=== PATIENT | male | born 1985 | race Two or more races ===

== ENCOUNTER 2021-04-26 09:33 | Emergency (ER) | payer OTHER, SELFPAY ==
--- NOTE | ~2021-04-26 | CT_ITS ---
EXAMINATION: CT ABDOMEN AND PELVIS WITHOUT CONTRAST CLINICAL INFORMATION: Left-sided abdominal pain. COMPARISON: CT abdomen and pelvis 06/08/2019 TECHNIQUE: Multidetector volumetric imaging was performed from the superior aspect of the liver through the pubic symphysis. Sagittal and coronal reformatted images were obtained on the technologist's workstation. This CT examination was performed using dose optimization techniques as appropriate, variously including the following: *Automated exposure control *Adjustment of mA and/or kV according to patient size (this includes techniques or standardized protocols for targeted exams where dose is matched to indication/reason for exam; i.e. extremities or head) *Use of iterative reconstruction technique DLP: 557 mGy-cm FINDINGS: LUNG BASES: The lung bases are clear. LIVER, GALLBLADDER, AND BILIARY TREE: The liver is normal in size, shape, and diffusely attenuated. No focal hepatic lesion or biliary ductal dilatation is present. The gallbladder is unremarkable with no evidence of radiopaque gallstones, gallbladder wall thickening, or obvious pericholecystic inflammatory changes. PANCREAS: Unremarkable. SPLEEN: Unremarkable. ADRENAL GLANDS: Unremarkable. KIDNEYS AND URETERS: The kidneys are normal in size, shape, and attenuation. No hydronephrosis, hydroureter, or calculi seen. No perinephric stranding. BLADDER: Unremarkable. GASTROINTESTINAL TRACT: Scattered stool and gas seen throughout the colon. The small bowel loops are normal caliber. Appendix is not visualized. There are surgical sutures in likely from appendectomy. There is no free air or free fluid. ABDOMINAL WALL: There is a small umbilical hernia containing fat. LYMPH NODES: No abnormal size pelvic or retroperitoneal lymph nodes seen. VASCULAR: Unremarkable. PELVIC VISCERA: Unremarkable. OSSEOUS STRUCTURES: Unremarkable. CT/CT abdomen pelvis wo con IMPRESSION: No acute intra-abdominal process seen Mild constipation. No bowel obstruction or left-sided abnormality seen Diffuse hepatic steatosis.
[2021-04-26 09:36] VITALS: BP 113/80; PULSE 85; RESP 19; TEMP 36.2; O2SAT 98; BMI 26.6
--- NOTE | 2021-04-26 11:24 | ED_ITS ---
HPI - Abdominal Pain General Chief Complaint: Abdominal Pain Stated Complaint: abd and back pain Time Seen by Provider: 04/26/21 11:21 Source: patient Mode of arrival: ambulatory Limitations: no limitations History of Present Illness HPI narrative: 35-year-old male came in for evaluation of left back pain and left lower abdominal pain, symptoms started 2 days ago, patient is also concern of STD patient had a history of chlamydia infection and was with the same symptoms of lower abdominal pain, patient declined any penile discharge or lesion. No history of kidney stones. Patient had a remote history of appendectomy. No fever, no chills, no bloody urine, no urinary frequency. Related Data Previous Rx's Medication Instructions Recorded doxycycline hyclate 100 mg PO BID #20 tab 04/26/21 Allergies Allergy/AdvReac Type Severity Reaction Status Date / Time latex [LATEX] Allergy Unknown RASH Unverified 07/02/20 15:28 Review of Systems Review of Systems All other systems are reviewed and are negative Constitutional: Reports as per HPI and Reports no additional constitutional complaints Eyes: Reports as per HPI and Reports no additional eye complaints Reports system reviewed and no additional complaints, except as documented Cardiovascular: Reports as per HPI and Reports no additional cardiovascular complaints Respiratory: Reports as per HPI and Reports no additional respiratory complaints Gastrointestinal: Reports as per HPI and Reports no additional gastrointestinal complaints Genitourinary: Reports no additional female genitourinary complaints Musculoskeletal: Reports no additional musculoskeletal complaints Skin/Breast: Reports system reviewed and no additional complaints, except as docu Psychiatric: Reports no additional psychiatric complaints Endocrine: Reports no additional endocrine complaints Hematologic/Lymphatic: Reports no additional hematologic/lymphatic complaints Allergic/Immunologic: Reports no additional allergic/immunologic complaints Reports system reviewed and no additional complaints, except as documented and Reports Abnormal speech present Physical Exam Vital Signs: Vital Signs: Last Vital Signs Temp 97.2 F 04/26/21 09:36 Pulse 85 04/26/21 09:36 Resp 19 04/26/21 09:36 BP 113/80 04/26/21 09:36 Pulse Ox 98 04/26/21 09:36 Body Mass Index 26.6 Vital signs have been reviewed as appeared to be correct. Blood pressure normal. Heart rate normal. Respiration rate normal. Temperature normal. Oxygen saturation normal. Appearance: Alert. Oriented X3. No acute distress. Head: Normal external exam. Normocephalic. Atraumatic. No Quiroz signs noted. No raccoon eyes noted Eyes: PERRLA. EOMI. Conjunctiva and sclera normal. Eyelids normal. ENT: TM's Normal. Pharynx normal. Uvula midline. Moist mucous membranes. No trismus noted. No drooling noted. No muffled voice noted. Neck: Normal inspection. Neck supple. FROM. No adenopathy. Thyroid Normal. No meningeal signs. No neck mass noted. CVS: Normal heart rate and rhythm. Heart sound normal. No murmurs noted. Pulses normal throughout. Respiratory: No respiratory distress. Painless inspiration. Breath sounds normal. No wheezes/rales/rhonchi noted. Chest nontender. No accessory muscle usage noted or decreased air movement noted. Abdomen: Soft and nontender. Bowel sounds normal in all 4 quadrants. No distention noted. No organomegaly noted. No visible injury noted. Back: No CVA tenderness. Full range of motion noted. Skin: Skin warm and dry. Normal skin color. Normal skin turgor. No rashes/lesions/lacerations noted. Extremities: No lower extremity edema. Extremities exhibit normal range of motion. Extremities nontender. Neuro: Oriented X 3. No motor deficit. No sensory deficit. Reflexes normal. Course Course Course Narrative: Assessment and plan. 35-year-old male with history of STD exposure, patient with a history of chlamydia in the past. Came in with left-sided lower abdominal pain (patient stated that it mimic symptoms when he had chlamydia infection), Patient has unremarkable labs and CT of the abdomen pelvis to explain the intra- abdominal pain. Will treat the patient for prophylaxis STD with ceftriaxone and doxycycline. MDM - Abdominal Pain Lab Data Attestation: I reviewed the patient's lab results. Result diagrams: 04/26/21 11:39 04/26/21 11:39 Labs: Lab Results 04/26/21 04/26/21 04/26/21 Range/Units 11:33 11:39 11:39 WBC 8.2 (4.8-10.8) X10*3/uL RBC 4.81 (4.60-5.80) X10*6/uL Hgb 14.3 (14.0-18.0) g/dl Hct 41.2 L (42-52) % MCV 85.7 (80-98) fL MCH 29.7 (27.0-33.0) pg MCHC 34.7 (31.0-36.0) g/dl RDW 12.2 (11.0-16.0) % Plt Count 285 (160-400) X10*3/uL MPV 9.7 (9.4-12.4) fL Immature Gran % (Auto) 0.1 (0.0-0.4) % Neut % (Auto) 57.3 (45-73) % Lymph % (Auto) 33.5 (20-40) % Elk % (Auto) 5.5 (2-11) % Eos % (Auto) 3.2 (0-4) % Baso % (Auto) 0.4 (0-2) % Lymph # (Auto) 2.8 (1.2-4.9) X10*3/uL Elk # (Auto) 0.5 (0.1-1.2) X10*3/uL Eos # (Auto) 0.3 (0.0-0.4) X10*3/uL Baso # (Auto) 0.0 (0.0-0.2) X10*3/uL Abs Immat Gran (auto) 0.01 (0.00-0.03) X10*3/uL Absolute Neuts (auto) 4.7 (2.0-8.3) X10*3/uL Absolute Nucleated RBC 0.000 (0.0-0.012) X10*3/uL Nucleated RBC % (auto) 0.0 (0.0-0.2) /100WBC Sodium 139 (135-145) mmol/L Potassium 4.3 (3.3-5.1) mmol/L Chloride 104 (96-108) mmol/L Carbon Dioxide 26 (22-29) mmol/L Anion Gap 13 (12-20) BUN 9 (9-16) mg/dL Creatinine 1.01 (0.5-1.4) mg/dL Estim Creat Clear Calc 100.1 Estimated GFR > 60 Random Glucose 98 (60-115) mg/dL Calcium 9.9 (8.4-10.2) mg/dL Lipase 19 (8-78) U/L Urine Color YELLOW Urine Appearance CLEAR Urine pH 6.0 (5.0-8.0) Ur Specific [place] 1.010 (1.005-1.025) Urine Protein NEG (NEG-TRACE) MG/DL Urine Glucose (UA) NEG (NEG) MG/DL Urine Ketones NEG (NEG) MG/DL Urine Blood NEG (NEG) Urine Nitrite NEG (NEG) Ur Leukocyte Esterase NEG (NEG) Urine RBC 0 (0) /HPF Urine WBC 0-2 (0-4) /HPF Ur Squamous Epith Cells NONE /LPF Urine Bacteria NONE /LPF Imaging Data CT scan - abdomen: Radiologist's impression: No acute intra-abdominal process seen Mild constipation. No bowel obstruction or left-sided abnormality seen Diffuse hepatic steatosis. Discharge Plan Discharge Clinical Impression: Exposure to STD Abdominal pain Qualifiers: Abdominal location: left lower quadrant Qualified Code(s): R10.32 - Left lower quadrant pain Patient Disposition: Home, Self-Care Instructions: Sexually Transmitted Diseases (ED) Prescriptions: New doxycycline hyclate 100 mg tablet 100 mg PO BID Qty: 20 RF: 0 Referrals: Physician,None [Primary Care Provider] - 2 days [facility] Past Medical History Medical History Asthma Social History Social History Advance Directives: No Advance Directives Information Provided: No
[2021-04-26 11:44] LABS: MANUAL DIFF FLAG NO
[2021-04-26] MEDS: 0.9 % Sodium Chloride 1,000 ML 999 ML IVCONT (11:44)
[2021-04-26 11:45] LABS: Basophils Percent Auto 0.4 % (0-2); Eosinophils Absolute Auto 0.3 X10*3/uL (0.0-0.4); Eosinophils Percent Auto 3.2 % (0-4); Hematocrit 41.2 % (42-52); Hemoglobin 14.3 g/dl (14.0-18.0); Imm Gran Abs Auto 0.01 X10*3/uL (0.00-0.03); Imm Gran Pct Auto 0.1 % (0.0-0.4); Lymphocytes Absolute Auto 2.8 X10*3/uL (1.2-4.9); Lymphocytes Percent Auto 33.5 % (20-40); Mean Corpuscular HGB Conc 34.7 g/dl (31.0-36.0); Mean Corpuscular Hemoglobin 29.7 pg (27.0-33.0); Mean Corpuscular Volume 85.7 fL (80-98); Mean Platelet Volume 9.7 fL (9.4-12.4); Monocytes Absolute Auto 0.5 X10*3/uL (0.1-1.2); Monocytes Percent Auto 5.5 % (2-11); Neutrophils Absolute Auto 4.7 X10*3/uL (2.0-8.3); Neutrophils Percent Auto 57.3 % (45-73); Platelet Count 285 X10*3/uL (160-400); Red Blood Count 4.81 X10*6/uL (4.60-5.80); Red Cell Distribution Width 12.2 % (11.0-16.0); White Blood Count 8.2 X10*3/uL (4.8-10.8)
[2021-04-26 11:46] LABS: Glucose Urine UA NEG (NEG); Leukocyte Esterase Urine NEG (NEG); Nitrite Urine NEG (NEG); Urine Blood NEG (NEG); Urine Ketones NEG (NEG); Urine Protein NEG (NEG-TRACE)
[2021-04-26 11:50] LABS: Appearance Urine CLEAR; Color Urine YELLOW
[2021-04-26 11:59] LABS: RBC Urine 0 /HPF (0); WBC Urine 0-2 /HPF (0-4)
[2021-04-26 12:16] LABS: Anion Gap 13 (12-20); Blood Urea Nitrogen 9 mg/dL (9-16); Calcium 9.9 mg/dL (8.4-10.2); Carbon Dioxide 26 mmol/L (22-29); Chloride 104 mmol/L (96-108); Creatinine Clr Calc Pharmacy 100.1; Estimated Glomerular Filt Rate > 60; Glucose Random 98 mg/dL (60-115); Lipase 19 U/L (8-78); Potassium 4.3 mmol/L (3.3-5.1); Sodium 139 mmol/L (135-145)
[2021-04-26] MEDS: cefTRIAXone sodium 250 MG, Lidocaine HCl 1 % MPF 0.9 ML IM (13:27)
[2021-04-26 13:45] LABS: CT PCR NOT DETECTED (Not Detect.); NG PCR NOT DETECTED (Not Detect.)
[2021-04-26 13:51] VITALS: BP 124/82; PULSE 56; RESP 17; O2SAT 95
== END 2021-04-26 13:53 | disposition home or self-care (01) ==
PROVIDERS: Emergency Provider Emergency Medicine
DX: M54.5 Low back pain (principal); R10.32 Left lower quadrant pain; Z20.2 Contact with and (suspected) exposure to infections with a predominantly sexual mode of transmission; Z79.899 Other long term (current) drug therapy
CPT/HCPCS: 36415; 74176; 80048; 81001; 83690; 85025; 87491; 87591; 96365; 96372; 99284; J0696

== ENCOUNTER 2023-01-07 07:49 | Emergency (ER) | payer OTHER, SELFPAY ==
[2023-01-07 07:58] VITALS: BP 123/84; PULSE 102; RESP 18; TEMP 36.8; O2SAT 99; BMI 28.7
--- NOTE | 2023-01-07 08:24 | ED_ITS ---
HPI - Dental/Oral General Chief complaint: Dental/Oral Stated complaint: Dental Infection Sore Throat Time Seen by Provider: 01/07/23 08:14 Source: patient Mode of arrival: ambulatory Limitations: no limitations History of Present Illness HPI Narrative: This is a 37-year-old male who denies any medical history who presents with several months of right lower dental pain. Patient reports he was seen by a dental office and was told he would need to have several appointments to have the tooth removed. Patient reports that he did not have the time to do this and so never followed up. Patient denies any difficulty swallowing, difficulty breathing, fevers, facial swelling. Denies tobacco use Related Data Previous Rx's Medication Instructions Recorded doxycycline hyclate 100 mg tablet 100 mg PO BID #20 tabs 04/26/21 acetaminophen 325 mg tablet 650 mg PO Q4H PRN pain #30 tabs 01/07/23 (Tylenol) clindamycin HCl 150 mg capsule 150 mg PO TID #21 caps 01/07/23 ibuprofen 600 mg tablet 600 mg PO Q8H PRN pain #30 tabs 01/07/23 Allergies Allergy/AdvReac Type Severity Reaction Status Date / Time latex [LATEX] Allergy Unknown RASH Verified 01/07/23 08:01 Review of Systems Neurologic: Denies Abnormal speech present [facility] Past Medical History Attestation statement: The following information was validated with the patient. Source: old records reviewed and nursing notes reviewed Medical History Asthma Social History Social History Advance Directives: No Advance Directives Information Provided: No Physical Exam Vital Signs: Vital Signs: Last Vital Signs Temp 98.2 F 01/07/23 07:58 Pulse 102 H 01/07/23 07:58 Resp 18 01/07/23 07:58 BP 123/84 01/07/23 07:58 Pulse Ox 99 01/07/23 07:58 O2 Del Method Room Air 01/07/23 07:58 BMI result Body Mass Index 28.7 Const: General: cooperative, healthy appearing, comfortable and no acute distress Orientation/consciousness: patient oriented x3 Limitations: no limitations HEENT: Other: No trismus Head: Yes normal to inspection Ears: hearing grossly normal bilaterally General nose exam: Normal external nose present Face and sinus: Yes normal facial exam Mouth: Normal oral and palatal mucosa present Teeth image: 1. Absent teeth 2. The tooth is broken. There is swelling of the gum line and tenderness with no abscess seen Throat: Yes posterior oropharynx normal Eyes: General: appearance normal, both eyes and all related structures Pupils: Equal, round and reactive pupils present Neck: Neck: Yes normal visual inspection, Yes full ROM and Yes no lymphadenopathy Chest: Chest palpation & inspection: normal inspection of the chest Resp: Effort & Inspection: normal respiratory effort Auscultation: clear to auscultation bilaterally Cardio: Rate: regular rate Rhythm: regular rhythm Peripheral pulses: Peripheral pulses 2+ throughout GI: Inspection: Yes normal to inspection Palpation (GI): Soft to palpation and nontender Auscultation: normal bowel sounds Back/Spine/Pelvis: Thoracic/Lumbar Spine: thoracic and lumbar spine normal to inspection Skin: General skin exam: no rashes or lesions noted Neuro: General: patient oriented x3, no focal motor deficits and normal sensation to monofilament Cranial nerves: Yes Equal, round and reactive pupils present Cognition (Neuro): normal cognition Speech: No Abnormal speech present Gait exam (Neuro): Normal gait present Motor exam (neuro): 5/5 motor strength present throughout Extrem: General: Yes normal to inspection Medical Decision Making Medical Decision Making MDM Narrative: 37-year-old male here with complaints of right lower dental pain for the last few months. No abscess on exam. No evidence of Vargas's angina. There is some tenderness and swelling of the gum line. Patient has seen dental clinic but has not followed up appropriately I will start him on antibiotic and recommend alternating Motrin and Tylenol with follow-up with dental clinic. Differential Diagnosis Differential Diagnoses: The differential diagnosis associated with the presentation includes See discussion above Discharge Plan Discharge Clinical Impression: Toothache Patient Disposition: Home, Self-Care Instructions: Toothache (ED) Additional Instructions: [place] gargles Topical Orajel Follow-up with your dentist Prescriptions: New ibuprofen 600 mg tablet 600 mg PO Q8H PRN (Reason: pain) Qty: 30 0RF acetaminophen [Tylenol] 325 mg tablet 650 mg PO Q4H PRN (Reason: pain) Qty: 30 0RF clindamycin HCl 150 mg capsule 150 mg PO TID Qty: 21 0RF No Action doxycycline hyclate 100 mg tablet 100 mg PO BID Qty: 20 0RF Referrals: Emmanuel Asencio MD [Primary Care Provider] - 1 week (as needed) Interventions: ED Discharge Assessment Last Done: 01/07/23 08:39 Discharge Date/Time: 01/07/23 08:40
== END 2023-01-07 08:40 | disposition home or self-care (01) ==
PROVIDERS: Emergency Provider Emergency Medicine; PCP Family Medicine
DX: K08.89 Other specified disorders of teeth and supporting structures (principal)
CPT/HCPCS: 99282; 99283

== ENCOUNTER → 2023-01-17 15:12 | Outpatient (BNVA) | payer OTHER, SELFPAY | PROVIDERS: PCP Family Medicine; Visit Provider Physician Assistant Medical | DX: M24.132 Other articular cartilage disorders, left wrist (principal) | CPT/HCPCS: 73110; 73130; 99203 ==

== ENCOUNTER → 2023-01-24 09:30 | Outpatient (BNVA) | payer OTHER, SELFPAY | PROVIDERS: PCP Family Medicine; Visit Provider Physician Assistant Medical | DX: S63.592A Other specified sprain of left wrist, initial encounter (principal); X58.XXXA Exposure to other specified factors, initial encounter | CPT/HCPCS: 99213 ==

== ENCOUNTER → 2023-02-07 08:14 | Outpatient (BNVA) | payer OTHER, SELFPAY | PROVIDERS: Visit Provider Physician Assistant | DX: S69.82XA Other specified injuries of left wrist, hand and finger(s), initial encounter (principal) | CPT/HCPCS: 99202 ==

== ENCOUNTER 2023-05-24 09:04 | Emergency (ER) | payer OTHER, SELFPAY ==
--- NOTE | ~2023-05-24 | XR_ITS ---
EXAMINATION: XR RIBS, LEFT CLINICAL INFORMATION: Pain COMPARISON: Left rib radiograph from 09/20/2019 TECHNIQUE: 4 views of the left ribs and chest FINDINGS: No focal consolidation. No pneumothorax. Trachea is midline. Cardiac mediastinal silhouette is not enlarged. No large. Soft tissues are unremarkable. Osseous structures are intact. No acute visualized left-sided rib fractures. XR/XR ribs LT min 3V w CXR1V IMPRESSION: 1. No acute cardiopulmonary process. 2. No acute visualized left-sided rib fractures.
--- NOTE | ~2023-05-24 | XR_ITS ---
EXAMINATION: XR CERVICAL SPINE, 3 VIEWS XR THORACIC SPINE, 3 VIEWS CLINICAL INFORMATION: Pain COMPARISON: None available. TECHNIQUE: 3 views of the cervical spine 3 views of the thoracic spine FINDINGS: No acute visible fracture or dislocation. Straightening of normal cervical curvature which may be secondary to patient positioning versus muscle spasm. Very mild multilevel degenerative changes with osteophyte formation. Visualized dens is intact. Lateral masses are symmetric. Vertebral body heights and disc spaces are maintained. Prevertebral soft tissues are unremarkable. Posterior elements are intact. Paraspinal soft tissues are unremarkable. Visualized portions of the chest and abdomen are unremarkable. XR/XR cervical spine 3V IMPRESSION: 1. No acute visible fracture or dislocation. 2. Straightening of normal cervical curvature which may be secondary to patient positioning versus muscle spasm. 3. Very mild multilevel degenerative changes.
--- NOTE | ~2023-05-24 | XR_ITS ---
EXAMINATION: XR CERVICAL SPINE, 3 VIEWS XR THORACIC SPINE, 3 VIEWS CLINICAL INFORMATION: Pain COMPARISON: None available. TECHNIQUE: 3 views of the cervical spine 3 views of the thoracic spine FINDINGS: No acute visible fracture or dislocation. Straightening of normal cervical curvature which may be secondary to patient positioning versus muscle spasm. Very mild multilevel degenerative changes with osteophyte formation. Visualized dens is intact. Lateral masses are symmetric. Vertebral body heights and disc spaces are maintained. Prevertebral soft tissues are unremarkable. Posterior elements are intact. Paraspinal soft tissues are unremarkable. Visualized portions of the chest and abdomen are unremarkable. XR/XR thoracic spine 3V IMPRESSION: 1. No acute visible fracture or dislocation. 2. Straightening of normal cervical curvature which may be secondary to patient positioning versus muscle spasm. 3. Very mild multilevel degenerative changes.
--- NOTE | 2023-05-24 09:10 | ECG_ITS ---
Test Reason : chest pain Blood Pressure : / mmHG Vent. Rate : 059 BPM Atrial Rate : 059 BPM P-R Int : 140 ms QRS Dur : 080 ms QT Int : 384 ms P-R-T Axes : 053 002 015 degrees QTc Int : 380 ms Sinus bradycardia Otherwise normal ECG When compared with ECG of 02-AUG-2008 14:22, Vent. rate has decreased BY 44 BPM QT has shortened Referred By: Generic ED Physician Electronically Signed By:Fred Cross
[2023-05-24 09:28] VITALS: BP 120/73; PULSE 60; RESP 18; TEMP 36.8; O2SAT 99; BMI 28.7
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
== END 2023-05-24 11:56 | disposition home or self-care (01) ==
PROVIDERS: Emergency Provider Student in an Organized Health Care Education/Training Program
DX: R07.89 Other chest pain (principal); M54.50 Low back pain, unspecified; M62.838 Other muscle spasm; R07.81 Pleurodynia; M54.2 Cervicalgia; M54.6 Pain in thoracic spine
CPT/HCPCS: 71101; 72040; 72072; 93005; 99283; 99284

== ENCOUNTER → 2023-05-24 09:10 | Outpatient (BNV) | payer OTHER, SELFPAY | PROVIDERS: Emergency Provider Student in an Organized Health Care Education/Training Program; Visit Provider Internal Medicine Cardiovascular Disease | DX: R00.1 Bradycardia, unspecified (principal) | CPT/HCPCS: 93010 ==

== ENCOUNTER 2023-06-14 18:51 | Emergency (ER) | payer OTHER, SELFPAY ==
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
[2023-06-14 18:59] VITALS: BP 130/80; BP 131/83; PULSE 102; PULSE 139; RESP 18; TEMP 37.3; O2SAT 95; BMI 27.2
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
[2023-06-14 19:29] LABS: MANUAL DIFF FLAG NO
[2023-06-14 19:33] LABS: Basophils Absolute Auto 0.1 X10*3/uL (0.0-0.2); Basophils Percent Auto 0.4 % (0-2); Eosinophils Absolute Auto 0.3 X10*3/uL (0.0-0.4); Eosinophils Percent Auto 1.5 % (0-4); Hematocrit 40.9 % (42.0-52.0); Imm Gran Abs Auto 0.11 X10*3/uL (0.00-0.03); Imm Gran Pct Auto 0.5 % (0.0-0.4); Lymphocytes Absolute Auto 3.3 X10*3/uL (1.2-4.9); Mean Corpuscular HGB Conc 34.2 g/dl (31.0-36.0); Mean Corpuscular Hemoglobin 29.7 pg (27.0-33.0); Mean Corpuscular Volume 86.7 fL (80.0-98.0); Monocytes Percent Auto 4.7 % (2-11); Neutrophils Absolute Auto 15.7 x10*3/uL (2.0-8.3); Neutrophils Percent Auto 76.9 % (45-73); Platelet Count 309 X10*3/uL (160-400); Red Blood Count 4.72 X10*6/uL (4.60-5.80); Red Cell Distribution Width 12.4 % (11.0-16.0); White Blood Count 20.4 X10*3/uL (4.8-10.8)
[2023-06-14 19:37] LABS: INTERNATIONAL NORM RATIO 0.9 (0.9-1.1); Prothrombin Time 11.3 SEC (11.1-13.3)
[2023-06-14] MEDS: iohexoL 350 MG/ML 100 ML INFUS..BTL IV (19:47)
[2023-06-14] MEDS: Morphine Sulfate 4 MG/ML CARTRIDGE IVPUSH ×2 (19:52→22:39)
[2023-06-14] MEDS: ondansetron HCL 4 MG/2 ML VIAL IVPUSH (19:53)
[2023-06-14] MEDS: 0.9 % Sodium Chloride 1,000 ML 999 ML IVCONT (19:53)
[2023-06-14 19:54] LABS: Alanine Aminotransferase 43 U/L (0-40); Albumin Level 4.6 g/dL (3.5-5.0); Alkaline Phosphatase 56 U/L (39-117); Anion Gap 16 (12-20); Aspartate Amino Transferase 58 U/L (5-37); Bilirubin Direct 0.2 mg/dL (0.0-0.5); Bilirubin Total 0.5 mg/dL (0.0-1.0); Blood Urea Nitrogen 9 mg/dL (9-16); Calcium 11.5 mg/dL (8.4-10.2); Carbon Dioxide 25 mmol/L (22-29); Chloride 107 mmol/L (96-108); Creatinine Clr Calc Pharmacy 84.9; Estimated Glomerular Filt Rate > 60; Glucose Random 103 mg/dL (60-115); Lipase 14 U/L (8-78); Potassium 3.5 mmol/L (3.3-5.1); Sodium 144 mmol/L (135-145); Total Protein 7.8 g/dL (6.5-8.0)
[2023-06-14] MEDS: Lidocaine HCl 1 % MPF 5 ML VIAL 10 ML SUBCUT (21:21)
[2023-06-14 22:38] VITALS: BP 145/89; PULSE 83; RESP 16; O2SAT 98
== END 2023-06-14 23:10 | disposition home or self-care (01) ==
PROVIDERS: Emergency Provider Emergency Medicine
DX: S09.90XA Unspecified injury of head, initial encounter (principal); S02.92XA Unspecified fracture of facial bones, initial encounter for closed fracture; S01.511A Laceration without foreign body of lip, initial encounter; S20.212A Contusion of left front wall of thorax, initial encounter; S00.03XA Contusion of scalp, initial encounter; S80.211A Abrasion, right knee, initial encounter; Y00.XXXA Assault by blunt object, initial encounter; R51.9 Headache, unspecified; R10.12 Left upper quadrant pain; Y93.9 Activity, unspecified; Y92.9 Unspecified place or not applicable; Y99.9 Unspecified external cause status
CPT/HCPCS: 12013; 36415; 70450; 70486; 71260; 72125; 74177; 80048; 80076; 83690; 85025; 85610; 96374; 96375; 96376; 99284; J2270; J2405; Q9967

== ENCOUNTER 2023-07-02 12:41 | Emergency (ER) | payer OTHER, SELFPAY ==
[2023-07-02 12:48] VITALS: BP 116/81; BP 140/78; PULSE 106; PULSE 107; RESP 18; TEMP 37; O2SAT 98; O2SAT 99; BMI 25.2
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
[2023-07-02] MEDS: Lidocaine HCl 1 % MPF 5 ML VIAL SUBCUT (13:10)
[2023-07-02] MEDS: Diphth,Pertus(ACell),Tet Adult 0.5 ML SYRINGE IM (13:42)
== END 2023-07-02 13:59 ==
PROVIDERS: Emergency Provider Student in an Organized Health Care Education/Training Program; PCP Family Medicine
DX: S61.411A Laceration without foreign body of right hand, initial encounter (principal); S60.511A Abrasion of right hand, initial encounter; W26.9XXA Contact with unspecified sharp object(s), initial encounter; Y93.9 Activity, unspecified; Y92.9 Unspecified place or not applicable; Y99.9 Unspecified external cause status; Z23 Encounter for immunization; Z79.899 Other long term (current) drug therapy
CPT/HCPCS: 12001; 90471; 90715; 99284

== ENCOUNTER 2024-06-21 15:54 | Emergency (ER) | payer OTHER, SELFPAY ==
--- NOTE | ~2024-06-21 | XR_ITS ---
EXAMINATION: XR KNEE, LEFT CLINICAL INFORMATION: Pain. Injury. COMPARISON: None available. TECHNIQUE: Four views of the left knee. FINDINGS: No fracture or joint effusion. Alignment is anatomic. Joint spaces are maintained. No abnormal soft tissue calcification. XR/XR knee LT 4V IMPRESSION: No fracture or dislocation. No joint effusion. Electronically signed by: Eran Fallon DO 06/21/2024 05:19 PM EDT
[2024-06-21 16:13] VITALS: BP 113/71; PULSE 72; RESP 18; TEMP 36.9; O2SAT 97; BMI 28.9
--- NOTE | 2024-06-21 16:13 | ED.GENADULT ---
HPI - General Adult General Chief complaint: Extremity Injury, Lower Stated complaint: pain in L knee, infection injection on stomach Time Seen by Provider: 06/21/24 17:53 Source: patient Mode of arrival: ambulatory Limitations: no limitations History of Present Illness HPI narrative: Patient is a 38-year-old male presents to the emergency department for evaluation of left knee pain primarily to the posterior knee but radiates to the medial and lateral side as well as over the patella. Reports no precipitating injury. Pain has been progressive over the past 3 days. He admits to a history of pain to this knee at least 5 other times in the past, most recently having occurred approximately 1 month ago. He is ambulatory with with an antalgic gait, he threw himself here today. Denies any redness or swelling, denies fevers or chills. He also expresses concern about localized area of redness surrounding his Sublocade injection site that he received 4 days ago on Monday. Reports it to be somewhat itchy. Related Data Previous Rx's ?Medication ?Instructions ?Recorded doxycycline hyclate 100 mg tablet 100 mg PO BID #20 tabs 04/26/21 acetaminophen 325 mg tablet 650 mg (2 x 325 mg) PO Q4H PRN 01/07/23 (Tylenol) pain #30 tabs clindamycin HCl 150 mg capsule 150 mg PO TID #21 caps 01/07/23 ibuprofen 600 mg tablet 600 mg PO Q8H PRN pain #30 tabs 01/07/23 naproxen 500 mg tablet 500 mg PO BID PRN back pain #28 01/17/23 tabs cyclobenzaprine 5 mg tablet 5 mg PO TID PRN muscle spasm #15 05/24/23 tabs ibuprofen 600 mg tablet 600 mg PO Q6H PRN pain #30 tabs 05/24/23 amoxicillin 875 mg-potassium 1 tab PO BID #6 tabs 06/14/23 clavulanate 125 mg tablet cyclobenzaprine 10 mg tablet 10 mg PO TID PRN muscle spasm #20 06/14/23 tabs morphine 15 mg immediate release 15 mg PO TID PRN pain #14 tabs 06/14/23 tablet ondansetron 4 mg disintegrating 4 mg PO Q8H PRN nausea and 06/14/23 tablet vomiting #20 tabs Allergies Allergy/AdvReac Type Severity Reaction Status Date / Time latex [LATEX] Allergy Unknown RASH Verified 06/21/24 16:14 Review of Systems Review of Systems: Yes all other systems are reviewed and are negative [facility] Past Medical History Attestation statement: The following information was validated with the patient. Source: old records reviewed Medical History Asthma Social History Social History (Updated 06/14/23 @ 19:30 by Lindsay Pradhan DO) Alcohol intake: never Patient Tobacco Use Status: Tobacco use Unknown Substance Use Type: Marijuana and Other Advance Directives: No Advance Directives Information Provided: No Do you have a plan to hurt others: No Plan Current occupational status: employed Current occupation: ambidextrous Physical Exam ED Vital Signs: Vital Signs - 24 hr 06/21/24 16:13 06/21/24 17:52 Temperature 98.4 F 98.8 F Pulse Rate 72 66 Respiratory Rate 18 20 Blood Pressure 113/71 126/67 Pulse Oximetry 97 98 Oxygen Delivery Method Room Air Room Air BMI result Body Mass Index 28.9 Appearance: Alert.?Oriented to person, place and time. No acute distress.?Normal affect. Eyes: Pupils equal, round and reactive to light.? ENT: Pharynx normal.?? Neck: Normal inspection.? Neck supple.?? CVS: Heart sounds normal. Normal heart rate and rhythm.? Pulses normal.?? Respiratory: No respiratory distress.? Lung sounds clear to auscultation bilaterally?? Abdomen: Soft and non-tender. Normoactive bowel sounds. 4 cm X 2 cm area of slight erythema, soft touch without induration or fluctuance to the left lower quadrant Skin: Skin warm and dry.? Normal skin color.? Extremities: No lower extremity edema.? No calf ttp. Left knee with diffuse tenderness upon palpation, no laxity, no obvious effusion, no erythema or warmth. 2+ DP/PT pulse bilaterally. ? Neuro: Moves all extremities spontaneously. Sensation intact bilaterally. Ambulates with antalgic gait. Course Course Course Narrative: RME performed by Doreen Gomez PA-C. Patient is a 38 year old assigned male at presenting to the emergency department with left knee pain. Patient states that he has not had any injury but has been having pain. Detailed physical exam and review of systems are deferred to the court bailiff or sheriff. Imaging ordered. Patient placed back in the waiting room pending room availability and results. Medications Administered Discontinued Medications Generic Name Dose Route Start Last Admin Trade Name Robin PRN Reason Stop Dose Admin Acetaminophen 975 mg 06/21/24 19:45 06/21/24 20:03 Acetaminophen 325 Mg Tablet PO 06/21/24 19:46 975 mg ONCE ONE Administration Ketorolac Tromethamine 15 mg 06/21/24 18:19 06/21/24 18:48 Ketorolac Tromethamine 15 Mg/Ml Vial IM 06/21/24 18:20 15 mg ONCE ONE Administration Medical Decision Making Medical Decision Making [facility] Narrative: Patient is a 38-year-old male presenting to emergency department for evaluation of left knee pain and redness to Sublocade injection site on the abdomen as per HPI. Left lower quadrant injection site reaction, mild localized erythema, discussed conservative treatment of injection site, given duration or 4 days that this boy he expresses concern for infection, no signs of systemic toxicity he is afebrile without tachycardia. Will trial short course of antibiotic for mild cellulitis. Regarding his left knee, upon palpation but does not have any overlying skin changes, no obvious erythema or warmth, no effusion. Suspect this is less likely septic joint. No precipitating injury to suggest an acute fracture dislocation and x-ray is without acute abnormality. Extremity is neurovascularly intact distally. No additional arthralgias/myalgias. Differential Diagnosis Differential Diagnoses: The differential diagnosis associated with the presentation includes (See narrative above) Admission/Observation Consideration of admission/observation: Escalation of care including admission/observation considered Independent Interpretation I performed an independent interpretation of an: Plain X-Ray (No acute fracture) Radiology Impression Discussion of test interpretation with radiology: I have reviewed the radiologist's reading. Radiologist Impression: XR/XR knee LT 4V IMPRESSION: No fracture or dislocation. No joint effusion. Independent Historian Clinical information obtained from an independent historian. History obtained from or confirmed by: Spouse External Record Review External record reviewed: Outpatient record Discharge Plan Discharge Clinical Impression: Knee strain Qualifiers: Encounter type: initial encounter Laterality: left Qualified Code(s): S86.912A - Strain of unspecified muscle(s) and tendon(s) at lower leg level, left leg, initial encounter Patient Disposition: Home, Self-Care Instructions: R.I.C.E. Treatment (ED) Additional Instructions: You can take ibuprofen 200 mg, 3 tablets (600mg) every 6-8 hours as needed for pain, in addition to Tylenol 500 mg, 2 tablets (1,000mg) every 4-6 hours as needed for pain, but not to exceed 3 doses daily (3,000mg).? Anil bandage for compression. Be sure to rest, apply ice they are 10 15 minutes 3-4 times daily, elevate your leg. Follow-up with primary care doctor. Prescriptions: No Action doxycycline hyclate 100 mg tablet 100 mg PO BID Qty: 20 0RF ibuprofen 600 mg tablet 600 mg PO Q8H PRN (Reason: pain) Qty: 30 0RF acetaminophen [Tylenol] 325 mg tablet 650 mg PO Q4H PRN (Reason: pain) Qty: 30 0RF clindamycin HCl 150 mg capsule 150 mg PO TID Qty: 21 0RF ibuprofen 600 mg tablet 600 mg PO Q6H PRN (Reason: pain) Qty: 30 0RF cyclobenzaprine 5 mg tablet 5 mg PO TID PRN (Reason: muscle spasm) Qty: 15 0RF ondansetron 4 mg tablet,disintegrating 4 mg PO Q8H PRN (Reason: nausea and vomiting) Qty: 20 0RF morphine 15 mg tablet 15 mg PO TID PRN (Reason: pain) Qty: 14 0RF Rx Instructions: partial fill okay; Partial Fill upon patient request. cyclobenzaprine 10 mg tablet 10 mg PO TID PRN (Reason: muscle spasm) Qty: 20 0RF amoxicillin-pot clavulanate 875-125 mg tablet 1 tab PO BID Qty: 6 0RF naproxen 500 mg tablet 500 mg PO BID PRN (Reason: back pain) Qty: 28 0RF Referrals: Physician,None [Primary Care Provider] - Stand Alone Forms: Work/School Release Print Language: Guinean
[2024-06-21 17:52] VITALS: BP 126/67; PULSE 66; RESP 20; TEMP 37.1; O2SAT 98
[2024-06-21] MEDS: Ketorolac Tromethamine 15 MG/ML VIAL IM (18:48)
[2024-06-21] MEDS: Acetaminophen 325 MG TABLET 975 MG PO (20:03)
[2024-06-21 20:44] VITALS: BP 126/67; PULSE 66; RESP 20; TEMP 37.1; O2SAT 98
== END 2024-06-21 20:44 | disposition home or self-care (01) ==
PROVIDERS: Emergency Provider Internal Medicine
DX: S86.912A Strain of unspecified muscle(s) and tendon(s) at lower leg level, left leg, initial encounter (principal); X58.XXXA Exposure to other specified factors, initial encounter; L03.311 Cellulitis of abdominal wall; Y93.9 Activity, unspecified; Y92.9 Unspecified place or not applicable; Y99.9 Unspecified external cause status
CPT/HCPCS: 73564; 96370; 96372; 99283; 99284; J1885

== ENCOUNTER 2024-11-24 15:24 | Emergency (ER) | payer OTHER, SELFPAY ==
[2024-11-24 16:32] VITALS: BP 122/77; PULSE 76; RESP 18; TEMP 37.4; O2SAT 99; BMI 25.6
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
[2024-11-24 16:57] LABS: MANUAL DIFF FLAG NO
[2024-11-24 17:01] LABS: Appearance Urine Clear; Color Urine Yellow; Glucose Urine UA Negative (Negative); Leukocyte Esterase Urine Negative (Negative); Nitrite Urine Negative (Negative); Specific Gravity - Urine 1.025 (1.005-1.025); Urine Blood Negative (Negative); Urine Ketones Trace mg/dL (Negative); Urine Protein Negative (Neg-Trace)
[2024-11-24 17:03] LABS: Basophils Absolute Auto 0.1 X10*3/uL (0.0-0.2); Basophils Percent Auto 0.5 % (0-2); Eosinophils Absolute Auto 0.3 X10*3/uL (0.0-0.4); Eosinophils Percent Auto 3.1 % (0-4); Hematocrit 42.6 % (42.0-52.0); Hemoglobin 14.6 g/dl (14.0-18.0); Imm Gran Abs Auto 0.03 X10*3/uL (0.00-0.03); Imm Gran Pct Auto 0.3 % (0.0-0.4); Lymphocytes Absolute Auto 2.6 X10*3/uL (1.2-4.9); Lymphocytes Percent Auto 26.4 % (20-40); Mean Corpuscular HGB Conc 34.3 g/dl (31.0-36.0); Mean Corpuscular Hemoglobin 29.2 pg (27.0-33.0); Mean Corpuscular Volume 85.2 fL (80.0-98.0); Mean Platelet Volume 9.9 fL (9.4-12.4); Monocytes Absolute Auto 0.5 X10*3/uL (0.1-1.2); Monocytes Percent Auto 5.4 % (2-11); Neutrophils Absolute Auto 6.3 x10*3/uL (2.0-8.3); Neutrophils Percent Auto 64.3 % (45-73); Platelet Count 304 X10*3/uL (160-400); Red Cell Distribution Width 12.3 % (11.0-16.0); White Blood Count 9.8 X10*3/uL (4.8-10.8)
[2024-11-24 17:15] LABS: Alanine Aminotransferase 17 U/L (0-40); Albumin Level 4.7 g/dL (3.5-5.0); Alkaline Phosphatase 69 U/L (39-117); Anion Gap 14 (12-20); Aspartate Amino Transferase 29 U/L (5-37); Bilirubin Total 0.3 mg/dL (0.0-1.0); Blood Urea Nitrogen 9 mg/dL (9-16); C Reactive Protein 0.16 mg/dL (< or = 0.50); Calcium 9.7 mg/dL (8.4-10.2); Carbon Dioxide 26 mmol/L (22-29); Chloride 105 mmol/L (96-108); Creatinine Clr Calc Pharmacy 103.2; Estimated Glomerular Filt Rate > 60; Glucose Random 93 mg/dL (60-115); Lipase 18 U/L (8-78); Potassium 3.8 mmol/L (3.3-5.1); Sodium 141 mmol/L (135-145); Total Protein 8.3 g/dL (6.5-8.0)
== END 2024-11-24 21:11 | disposition left against medical advice (07) ==
LOC: HO.ED 20:51
PROVIDERS: Nurse Practitioner Family; Emergency Provider Emergency Medicine
DX: M54.50 Low back pain, unspecified (principal); R10.31 Right lower quadrant pain; R10.2 Pelvic and perineal pain; Z79.899 Other long term (current) drug therapy
CPT/HCPCS: 36415; 80053; 81003; 83690; 85025; 86140; 99282; 99283